=== PATIENT | male | born 1985 | race Two or more races ===

== ENCOUNTER 2016-08-28 15:06 | Emergency (ER) | payer SELFPAY ==
[~2016-08-28] VITALS: Ht 167.6 cm; Wt 79.4 kg
[2016-08-28 15:28] VITALS: BP 154/79
[2016-08-28] MEDS ORDERED: DEXAMETHASONE SOD PHOSPHATE 10 MG/ML VIAL ONE (16:16)
[2016-08-28] MEDS ORDERED: KETOROLAC TROMETHAMINE INJ 30 MG/ML VIAL ONE (16:17)
[2016-08-28] MEDS ORDERED: KETOROLAC TROMETHAMINE INJ 60 MG/2 ML VIAL IM ONE (16:30)
[2016-08-28] MEDS ORDERED: DEXAMETHASONE SOD PHOSPHATE 4 MG/ML VIAL IM ONE (16:30)
== END 2016-08-28 16:46 | disposition home or self-care (01) ==
LOC: ER 15:08
DX: S39.012A Strain of muscle, fascia and tendon of lower back, initial encounter (principal); M54.17 Radiculopathy, lumbosacral region; X58.XXXA Exposure to other specified factors, initial encounter; Y93.73 Activity, racquet and hand sports; Y92.89 Other specified places as the place of occurrence of the external cause; Y99.8 Other external cause status
CPT/HCPCS: 96372 ×2; 99284; A4606; J1100 ×2; J1885 ×2; Z7610